=== PATIENT | female | born 1960 | race Caucasian/White ===

== ENCOUNTER 2020-06-17 18:25 | Emergency (ER) | payer OTHER ==
[~2020-06-17] VITALS: Ht 170.2 cm; Wt 108.9 kg
[2020-06-17] MEDS ORDERED: HYDROCHLOROTHIA25 M2 PO (18:45)
[2020-06-17] MEDS ORDERED: CARVEDILOL12.5 MG PO (18:45)
[2020-06-17] MEDS ORDERED: SIMVASTATIN40 MG PO (18:45)
[2020-06-17 19:27] VITALS: BP 161/88
== END 2020-06-17 19:28 | disposition home or self-care (01) ==
LOC: M.ERS 18:25
DX: Z20.828 Contact with and (suspected) exposure to other viral communicable diseases (principal); I10 Essential (primary) hypertension; E78.00 Pure hypercholesterolemia, unspecified; Z88.8 Allergy status to other drugs, medicaments and biological substances

== ENCOUNTER 2021-02-04 20:17 | Emergency (ER) | payer OTHER ==
[~2021-02-04] VITALS: Ht 170.2 cm; Wt 111.1 kg
[~2021-02-04 20:17] MED LIST: CARVEDILOL12.5 MG PO; HYDROCHLOROTHIA25 M2 PO; SIMVASTATIN40 MG PO
[2021-02-04] MEDS ORDERED: CLONAZEPAM 0.50.5 M1 PO (20:28)
[2021-02-04 22:46] VITALS: BP 161/91
== END 2021-02-04 22:46 | disposition home or self-care (01) ==
LOC: M.ERS 20:17
DX: B34.9 Viral infection, unspecified (principal); Z20.822 Contact with and (suspected) exposure to COVID-19; I10 Essential (primary) hypertension; E78.00 Pure hypercholesterolemia, unspecified; Z88.8 Allergy status to other drugs, medicaments and biological substances